=== PATIENT | male | born 1970 | race Caucasian/White ===

== ENCOUNTER 2024-03-11 20:02 | Emergency (ER) | payer OTHER ==
[2024-03-11 20:08] VITALS: BP 162/83; PULSE 78; RESP 18; TEMP 98.1; BMI 28.2
[2024-03-11] MEDS ORDERED: KETOROLAC TROMETHAMINE 30 MG/1 ML VIAL ONE (21:04)
[2024-03-11] MEDS: KETOROLAC TROMETHAMINE 30 MG/1 ML VIAL IM ONE (21:16)
== END 2024-03-11 23:24 | disposition home or self-care (01) ==
LOC: JER 20:02
PROC: 3E0133Z Introduction of Anti-inflammatory into Subcutaneous Tissue, Percutaneous Approach (ICD-10-PCS; principal; 2024-03-11)
DX: M25.572 Pain in left ankle and joints of left foot (principal); M79.672 Pain in left foot; M25.472 Effusion, left ankle; M25.475 Effusion, left foot
CPT/HCPCS: 93971-TC; 99284-25

== ENCOUNTER 2024-11-07 13:13 | Emergency (ER) | payer OTHER ==
[2024-11-07 13:26] VITALS: BP 137/84; PULSE 68; RESP 16; BMI 27.4
[2024-11-07 15:54] LABS: EOSINOPHIL % 2.1 % (0.8-7.0); EOSINOPHILS # 0.29 x10^3/uL (0.04-0.54)
[2024-11-07 15:56] LABS: ABSOLUTE IMMATURE GRANULOCYTES 0.14 x10^3/uL (0.0-0.031); BASOPHILS # 0.11 x10^3/uL (0.01-0.08); MCHC 32.8 g/dl (32.3-36.5); MEAN CELL VOLUME 94.2 fl (79.0-92.2); MEAN PLT VOLUME 11.2 fl (9.4-12.4); MONOCYTE # 1.75 x10^3/uL (0.30-0.82); MONOCYTE % 12.7 % (5.3-12.2); RDW 14.2 % (12.2-16.1)
[2024-11-07 16:23] LABS: CO2 29.0 mmol/L (21-32); GLUCOSE,RANDOM 96.0 mg/dL (74-106)
[2024-11-07 16:26] LABS: CREATININE 1.0 mg/dL (0.55-1.3); SGOT/AST 19.0 U/L (15-37); SGPT/ALT 32.0 U/L (13-61)
[2024-11-07 16:27] LABS: TOT PROT 7.1 g/dl (6.4-8.2)
[2024-11-07 16:28] LABS: ALK PHOS 112.0 U/L (45-117)
[2024-11-07 17:13] LABS: HIV INTERPRETATION NEGATIVE (NEGATIVE)
[2024-11-07 17:14] LABS: HCV DIAGNOSTIC IN-HOUSE W/RFLX NON-REACTIVE (NONREACTIVE)
[2024-11-07] MEDS ORDERED: ACETAMINOPHEN INJECTION 100 ML ONE (17:58)
[2024-11-07] MEDS: SODIUM CHLORIDE 0.9% 500 ML INFUS.BAG IV ONE (18:05)
[2024-11-07] MEDS: ACETAMINOPHEN 1000 MG/100 ML BAG IVPB ONE (18:06)
== END 2024-11-07 19:40 | disposition home or self-care (01) ==
LOC: JER 13:13 → JERFT 13:13
PROC: 3E033NZ Introduction of Analgesics, Hypnotics, Sedatives into Peripheral Vein, Percutaneous Approach (ICD-10-PCS; principal; 2024-11-07)
DX: M79.18 Myalgia, other site (principal)
CPT/HCPCS: 36415; 80053; 82550; 83735; 85025; 86803; 87389; 93970-TC; 99285-25